=== PATIENT | female | born 2000 | race Caucasian/White ===

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

== ENCOUNTER 2020-10-04 12:36 | Emergency (ER) | payer OTHER, MEDICAID ==
[~2020-10-04] VITALS: Ht 172.7 cm; Wt 74.4 kg
[~2020-10-04 12:36] MED LIST: ONDANSETRON HCL4 M2 PO; TRAMADOL 50 MG50 MG PO
[2020-10-04] MEDS ORDERED: PNV 29-1 TABLE1 EACH PO (12:50)
[2020-10-04 13:10] VITALS: BP 136/70
== END 2020-10-04 13:11 | disposition home or self-care (01) ==
LOC: M.ERS 12:36
DX: O26.892 Other specified pregnancy related conditions, second trimester (principal); M79.651 Pain in right thigh; R10.31 Right lower quadrant pain; Z3A.18 18 weeks gestation of pregnancy; Z87.42 Personal history of other diseases of the female genital tract; Z79.899 Other long term (current) drug therapy; Z88.6 Allergy status to analgesic agent; Z88.0 Allergy status to penicillin; Z88.2 Allergy status to sulfonamides

== ENCOUNTER 2020-11-14 15:06 | Emergency (ER) | payer OTHER, MEDICAID ==
[~2020-11-14] VITALS: Ht 170.2 cm; Wt 77.6 kg
[~2020-11-14 15:06] MED LIST changes: +PNV 29-1 TABLE1 EACH PO
[2020-11-14 17:19] VITALS: BP 125/78
== END 2020-11-14 17:20 | disposition home or self-care (01) ==
LOC: M.ERS 15:06
DX: O26.892 Other specified pregnancy related conditions, second trimester (principal); S60.022A Contusion of left index finger without damage to nail, initial encounter; N80.9 Endometriosis, unspecified; Z3A.24 24 weeks gestation of pregnancy; Z88.6 Allergy status to analgesic agent; Z88.0 Allergy status to penicillin; Z88.2 Allergy status to sulfonamides; W23.0XXA Caught, crushed, jammed, or pinched between moving objects, initial encounter; Y93.89 Activity, other specified; Y92.89 Other specified places as the place of occurrence of the external cause; Y99.8 Other external cause status